=== PATIENT | male | born 1990 | race Caucasian/White ===

== ENCOUNTER 2017-08-23 11:47 | Emergency (ER) | payer SELFPAY ==
[2017-08-23] MEDS ORDERED: HYDROcodone/Acetaminophen 10/325 mg Tablet ONE (12:34)
[2017-08-23] MEDS ORDERED: Diazepam 5 MG TAB ONE (12:34)
[2017-08-23] MEDS ORDERED: Naproxen 500 MG TAB ONE (12:35)
== END 2017-08-23 13:10 | disposition home or self-care (01) ==
LOC: MADERS 11:47
DX: M54.41 Lumbago with sciatica, right side (principal); B36.0 Pityriasis versicolor; F17.210 Nicotine dependence, cigarettes, uncomplicated
CPT/HCPCS: 99283